=== PATIENT | female | born 1970 | race African-American/Black ===

== ENCOUNTER 2021-01-10 20:22 | Inpatient (IN) | payer MEDICAID, SELFPAY ==
[~2021-01-10 20:22] MED LIST: Iopamidol 370 76% 100 ML VIAL ONE
[2021-01-10] MEDS ORDERED: Acetaminophen 500 MG TAB ONE (20:31)
[2021-01-10 20:58] LABS: Hemoglobin 11.2 g/dL (12.0-16.0); Mean Corpuscular HGB CONC 30.4 g/dL (32.0-36.0); Mean Corpuscular Hemoglobin 22.7 pg (27.0-31.0); Mean Corpuscular Volume 74.6 fL (78.0-98.0); Mean Platelet Volume 9.1 fL (7.4-10.4); Platelet Count 474 thou/uL (130-400); RBC Distribution Width 18.9 % (11.5-14.5); Red Blood Cell (RBC) Count 4.93 mill/uL (4.20-5.40); White Blood Cell (WBC) Count 17.4 thou/uL (4.8-10.8)
[2021-01-10 21:15] LABS: #Basophils 0.1 thou/uL (0.0-0.2); #Eosinphils 0.2 thou/uL (0.0-0.7); #Lymphocytes 5.5 thou/uL (1.20-3.40); #Monocytes 1.3 thou/uL (0.11-0.59); #Neutrophils 10.4 thou/uL (1.40-6.50); %Basophils 0.5 % (0.0-1.0); %Eosinophils 1.1 % (0.0-10.0); %Lymphocytes 31.4 % (21.0-51.0); %Monocytes 7.2 % (0.0-10.0); %Neutrophils 59.8 % (42.0-75.0); MDiff Complete? YES; Microcytosis SLIGHT = 6-15 cells (100X) (0-5/hpf); Platelet Morphology Comment Appears Increased
[2021-01-10] MEDS ORDERED: Morphine 4 MG/ML VIAL ONE (21:31)
[2021-01-10] MEDS ORDERED: Piperacillin/Tazobactam 3.375 GM VIAL ONE (21:58)
[2021-01-10 21:59] LABS: ALT (SGPT) 11 U/L (8-55); AST (SGOT) 13 U/L (5-34); Alkaline Phosphatase 113 U/L (40-110); Anion Gap 16 mmol/L (10-20); BUN (Urea Nitrogen) 12 mg/dL (9.8-20.1); Bilirubin, Total 0.7 mg/dL (0.2-1.2); Calc. Creatinine Clearance 0 mL/min (70-130); Calcium 9.6 mg/dL (7.8-10.44); Carbon Dioxide 24 mmol/L (22-29); Chloride 108 mmol/L (98-107); Globulin 4.2 g/dL (2.4-3.5); Glucose 95 mg/dL (70-105); Potassium 3.9 mmol/L (3.5-5.1); Protein, Total 8.2 g/dL (6.0-8.3); Sodium 144 mmol/L (136-145)
[2021-01-10] MEDS ORDERED: Piperacillin/Tazobactam 3.375 GM in Sodium Chloride 0.9% 100 ML IVPB SCH (22:00)
[2021-01-10 22:01] LABS: BHCG - Serum Negative (NEGATIVE); Pregs Control Background? CLEAR/WHITE (CLR/WHITE); Pregs Control Bar Appear? YES (CONTROL BAR)
[2021-01-11] MEDS ORDERED: Acetaminophen 650 MG Suppository PR PRN (01:51)
[2021-01-11] MEDS ORDERED: Acetaminophen 325 MG TAB PO PRN (01:51)
[2021-01-11 01:53] LABS: Bilirubin Negative (Negative); Blood, Urine Negative (Negative); Clarity Clear (Clear); Glucose, Urine (Dipstick) Normal (Negative); Ketone, Urine Negative (Negative); Leukocyte Negative Leu/uL (Negative); Nitrite Negative (Negative); Protein, Urine (Dipstick) Negative (Neg-Trace); Specific Gravity, Urine 1.025 (1.002-1.036); Urobilinogen Normal mg/dL (Less than 2); pH, Urine 5.5 (5.0-9.0)
[2021-01-11] MEDS ORDERED: hydrALAZINE 20 MG/ML VIAL SLOW IVP PRN (01:53)
[2021-01-11] MEDS ORDERED: Amlodipine 10 MG TAB PO SCH ×2 (02:15→09:00)
[2021-01-11 02:52] VITALS: BMI 32.6
[2021-01-11] MEDS: Piperacillin/Tazobactam 3.375 GM in Sodium Chloride 0.9% 100 ML IVPB SCH ×2 (04:49→12:32)
[2021-01-11 06:47] LABS: #Basophils 0.1 thou/uL (0.0-0.2); #Eosinphils 0.2 thou/uL (0.0-0.7); #Lymphocytes 4.2 thou/uL (1.20-3.40); #Monocytes 1.2 thou/uL (0.11-0.59); #Neutrophils 7.3 thou/uL (1.40-6.50); %Basophils 0.5 % (0.0-1.0); %Eosinophils 1.4 % (0.0-10.0); %Lymphocytes 32.4 % (21.0-51.0); %Neutrophils 56.7 % (42.0-75.0); Hemoglobin 10.4 g/dL (12.0-16.0); Mean Corpuscular HGB CONC 31.5 g/dL (32.0-36.0); Mean Corpuscular Hemoglobin 23.7 pg (27.0-31.0); Mean Corpuscular Volume 75.2 fL (78.0-98.0); Mean Platelet Volume 9.1 fL (7.4-10.4); Platelet Count 421 thou/uL (130-400); RBC Distribution Width 18.4 % (11.5-14.5); Red Blood Cell (RBC) Count 4.41 mill/uL (4.20-5.40); White Blood Cell (WBC) Count 12.8 thou/uL (4.8-10.8)
[2021-01-11 07:24] LABS: Iron 21 ug/dL (50-170); Iron Binding Capacity, Total 373 mcg/dL (265-497)
[2021-01-11 07:33] LABS: Anion Gap 13 mmol/L (10-20); BUN (Urea Nitrogen) 8 mg/dL (9.8-20.1); Calc. Creatinine Clearance 109 mL/min (70-130); Calcium 8.5 mg/dL (7.8-10.44); Carbon Dioxide 22 mmol/L (22-29); Chloride 112 mmol/L (98-107); Glucose 94 mg/dL (70-105); Potassium 3.7 mmol/L (3.5-5.1); Sodium 143 mmol/L (136-145)
[2021-01-11 08:28] VITALS: BP 152/91; TEMP 98
[2021-01-11 14:52] LABS: SARS-CoV-2 PCR by NAA Not Detected (NotDetected)
== END 2021-01-11 13:47 | disposition home or self-care (01) | DRG 872 ==
LOC: ERS 20:22 → T4-A 01-11 00:06
PROVIDERS: ADMIT Student in an Organized Health Care Education/Training Program; ATTEND Student in an Organized Health Care Education/Training Program
DX: A41.9 Sepsis, unspecified organism (principal); K57.32 Diverticulitis of large intestine without perforation or abscess without bleeding; Z20.822 Contact with and (suspected) exposure to COVID-19; I16.0 Hypertensive urgency; D25.9 Leiomyoma of uterus, unspecified; K80.80 Other cholelithiasis without obstruction; I10 Essential (primary) hypertension; D50.9 Iron deficiency anemia, unspecified; Z88.1 Allergy status to other antibiotic agents; Z88.8 Allergy status to other drugs, medicaments and biological substances
CPT/HCPCS: 36415; 74177; 80048; 80053; 81003; 82728; 83540; 83550; 83605; 84703; 85025; 87040; 87086; J2270; J2543; J3490; Q9967; U0003; U0005

== ENCOUNTER 2021-04-12 21:39 | Emergency (ER) | payer SELFPAY ==
[2021-04-13] MEDS ORDERED: Acetaminophen 500 MG TAB ONE ×2 (00:17→00:33)
[2021-04-13 01:35] LABS: #Basophils 0.1 thou/uL (0.0-0.2); #Eosinphils 0.1 thou/uL (0.0-0.7); #Lymphocytes 3.7 thou/uL (1.20-3.40); #Monocytes 1.4 thou/uL (0.11-0.59); #Neutrophils 7.4 thou/uL (1.40-6.50); %Basophils 0.4 % (0.0-1.0); %Lymphocytes 29.3 % (21.0-51.0); %Monocytes 11.1 % (0.0-10.0); %Neutrophils 58.2 % (42.0-75.0); Hemoglobin 9.9 g/dL (12.0-16.0); Mean Corpuscular HGB CONC 31.1 g/dL (32.0-36.0); Mean Corpuscular Hemoglobin 24.4 pg (27.0-31.0); Mean Corpuscular Volume 78.5 fL (78.0-98.0); Mean Platelet Volume 8.3 fL (7.4-10.4); Platelet Count 357 thou/uL (130-400); RBC Distribution Width 16.6 % (11.5-14.5); Red Blood Cell (RBC) Count 4.04 mill/uL (4.20-5.40); White Blood Cell (WBC) Count 12.7 thou/uL (4.8-10.8)
[2021-04-13 01:59] LABS: ALT (SGPT) 10 U/L (8-55); AST (SGOT) 11 U/L (5-34); Albumin 3.1 g/dL (3.5-5.0); Alkaline Phosphatase 78 U/L (40-110); Anion Gap 12 mmol/L (10-20); BUN (Urea Nitrogen) 11 mg/dL (9.8-20.1); Bilirubin, Total 0.7 mg/dL (0.2-1.2); Calc. Creatinine Clearance 0 mL/min (70-130); Calcium 8.4 mg/dL (7.8-10.44); Carbon Dioxide 22 mmol/L (22-29); Chloride 113 mmol/L (98-107); Globulin 3.2 g/dL (2.4-3.5); Glucose 96 mg/dL (70-105); Lipase 35 U/L (8-78); Potassium 3.7 mmol/L (3.5-5.1); Protein, Total 6.3 g/dL (6.0-8.3); Sodium 143 mmol/L (136-145)
[2021-04-13 04:08] LABS: Bacteria/HPF None Seen HPF (None Seen); Bilirubin Negative (Negative); Blood, Urine 1+ (Negative); Clarity Turbid (Clear); Glucose, Urine (Dipstick) Normal (Negative); Ketone, Urine Trace mg/dL (Negative); Leukocyte 250 Leu/uL (Negative); Nitrite Negative (Negative); Protein, Urine (Dipstick) 50 mg/dL (Neg-Trace); Specific Gravity, Urine 1.029 (1.002-1.036); Squamous Epithelial Greater than 50 HPF (0-3); Urobilinogen Normal mg/dL (Less than 2); WBC/HPF 21-50 HPF (0-3); pH, Urine 5.5 (5.0-9.0)
[2021-04-13 17:44] LABS: SARS-CoV-2 PCR by NAA Not Detected (NotDetected)
== END 2021-04-13 04:37 | disposition home or self-care (01) ==
LOC: ERS 21:39
DX: R53.83 Other fatigue (principal); R68.83 Chills (without fever); R10.9 Unspecified abdominal pain; R05.9 Cough, unspecified; R51.9 Headache, unspecified; Z20.822 Contact with and (suspected) exposure to COVID-19
CPT/HCPCS: 36415; 80053; 81003; 81015; 83690; 85025; 99284; U0003; U0005

== ENCOUNTER 2021-07-26 20:29 | Inpatient (IN) | payer SELFPAY ==
[~2021-07-26 20:29] MED LIST changes: -Iopamidol 370 76% 100 ML VIAL ONE; +Iopamidol-370 76% 500 ML 1 ML ONE
[2021-07-26 21:13] LABS: #Basophils 0.1 thou/uL (0.0-0.2); #Eosinphils 0.2 thou/uL (0.0-0.7); #Lymphocytes 4.7 thou/uL (1.20-3.40); #Monocytes 1.5 thou/uL (0.11-0.59); #Neutrophils 8.7 thou/uL (1.40-6.50); %Basophils 0.7 % (0.0-1.0); %Lymphocytes 30.8 % (21.0-51.0); %Neutrophils 57.5 % (42.0-75.0); Hemoglobin 11.7 g/dL (12.0-16.0); Mean Corpuscular HGB CONC 32.5 g/dL (32.0-36.0); Mean Corpuscular Hemoglobin 25.5 pg (27.0-31.0); Mean Corpuscular Volume 78.3 fL (78.0-98.0); Mean Platelet Volume 7.9 fL (7.4-10.4); Platelet Count 484 thou/uL (130-400); RBC Distribution Width 15.7 % (11.5-14.5); Red Blood Cell (RBC) Count 4.59 mill/uL (4.20-5.40); White Blood Cell (WBC) Count 15.1 thou/uL (4.8-10.8)
[2021-07-26 21:30] LABS: ALT (SGPT) 13 U/L (8-55); AST (SGOT) 15 U/L (5-34); Albumin 3.8 g/dL (3.5-5.0); Alkaline Phosphatase 93 U/L (40-110); Anion Gap 13 mmol/L (10-20); BUN (Urea Nitrogen) 10 mg/dL (9.8-20.1); Bilirubin, Total 0.4 mg/dL (0.2-1.2); Calc. Creatinine Clearance 0 mL/min (70-130); Calcium 9.3 mg/dL (7.8-10.44); Carbon Dioxide 23 mmol/L (22-29); Chloride 109 mmol/L (98-107); Globulin 4.2 g/dL (2.4-3.5); Glucose 110 mg/dL (70-105); Potassium 3.7 mmol/L (3.5-5.1); Sodium 141 mmol/L (136-145)
[2021-07-26] MEDS ORDERED: Ketorolac Tromethamine 30 MG/ML VIAL ONE (22:18)
[2021-07-26 22:31] LABS: SARS-CoV-2 NAA Rapid Test Not Detected (NotDetected)
[2021-07-26] MEDS ORDERED: Piperacillin/Tazobactam 4.5 GM VIAL ONE (23:00)
[2021-07-26 23:36] LABS: Bilirubin Negative (Negative); Blood, Urine Negative (Negative); Clarity Clear (Clear); Glucose, Urine (Dipstick) Normal (Negative); Ketone, Urine Negative (Negative); Leukocyte Negative Leu/uL (Negative); Nitrite Negative (Negative); Protein, Urine (Dipstick) Negative (Neg-Trace); Specific Gravity, Urine 1.014 (1.002-1.036); Urobilinogen Normal mg/dL (Less than 2)
[2021-07-27 01:29] LABS: Troponin I 0.024 ng/mL (< 0.028)
[2021-07-27] MEDS ORDERED: Acetaminophen 325 MG TAB PO PRN ×2 (01:45→14:49)
[2021-07-27] MEDS ORDERED: Ondansetron PF 4 MG/2 ML Vial IVP PRN (01:45)
[2021-07-27] MEDS ORDERED: Sodium Chloride 0.9% 1,000 ML IV SCH (01:45)
[2021-07-27] MEDS ORDERED: Ondansetron ODT 4 MG TAB SL PRN (01:45)
[2021-07-27] MEDS ORDERED: hydrALAZINE 20 MG/ML VIAL SLOW IVP PRN (02:29)
[2021-07-27] MEDS ORDERED: Piperacillin/Tazobactam 3.375 GM in Sodium Chloride 0.9% 100 ML IVPB SCH (03:00)
[2021-07-27] MEDS: cefTRIAXone\\ROCEPHIN 1 GM in Sodium Chloride 0.9% 100 ML IVPB SCH (06:07)
[2021-07-27 06:19] LABS: Troponin I 0.017 ng/mL (< 0.028)
[2021-07-27 06:39] VITALS: BMI 31.0
[2021-07-27] MEDS ORDERED: metroNIDAZOLE 500 MG TAB PO SCH (07:00)
[2021-07-27] MEDS ORDERED: Amlodipine 10 MG TAB PO SCH (09:15)
[2021-07-27] MEDS ORDERED: Losartan 25 MG TAB PO SCH (09:15)
[2021-07-27] MEDS: Enoxaparin Sodium 40 MG/0.4 ML SYRINGE SC SCH (10:10)
[2021-07-27] MEDS: metroNIDAZOLE 500 MG TAB PO SCH ×2 (15:23→20:41)
[2021-07-27] MEDS: Sodium Chloride 0.9% 1,000 ML IV SCH ×2 (15:24→20:41)
[2021-07-28] MEDS: Sodium Chloride 0.9% 1,000 ML IV SCH ×2 (06:00→22:43)
[2021-07-28] MEDS: cefTRIAXone\\ROCEPHIN 1 GM in Sodium Chloride 0.9% 100 ML IVPB SCH (06:00)
[2021-07-28 06:01] LABS: #Eosinphils 0.2 thou/uL (0.0-0.7); #Lymphocytes 3.3 thou/uL (1.20-3.40); %Basophils 0.4 % (0.0-1.0); %Eosinophils 2.7 % (0.0-10.0); %Monocytes 12.1 % (0.0-10.0); %Neutrophils 46.9 % (42.0-75.0); Hemoglobin 10.5 g/dL (12.0-16.0); Mean Corpuscular HGB CONC 31.3 g/dL (32.0-36.0); Mean Corpuscular Hemoglobin 24.6 pg (27.0-31.0); Mean Corpuscular Volume 78.8 fL (78.0-98.0); Mean Platelet Volume 7.6 fL (7.4-10.4); Platelet Count 480 thou/uL (130-400); RBC Distribution Width 15.7 % (11.5-14.5); Red Blood Cell (RBC) Count 4.26 mill/uL (4.20-5.40); White Blood Cell (WBC) Count 8.6 thou/uL (4.8-10.8)
[2021-07-28 06:27] LABS: Anion Gap 14 mmol/L (10-20); BUN (Urea Nitrogen) 6 mg/dL (9.8-20.1); Calc. Creatinine Clearance 136 mL/min (70-130); Carbon Dioxide 19 mmol/L (22-29); Chloride 112 mmol/L (98-107); Glucose 89 mg/dL (70-105); Potassium 3.8 mmol/L (3.5-5.1); Sodium 141 mmol/L (136-145)
[2021-07-28] MEDS: metroNIDAZOLE 500 MG TAB PO SCH ×3 (08:52→20:55)
[2021-07-28] MEDS: Losartan 25 MG TAB PO SCH (08:52)
[2021-07-28] MEDS: Amlodipine 10 MG TAB PO SCH (08:52)
[2021-07-28] MEDS: Enoxaparin Sodium 40 MG/0.4 ML SYRINGE SC SCH (08:53)
[2021-07-28] MEDS ORDERED: Fioricet 325/50/40 mg Tablet PO PRN (15:23)
[2021-07-28] MEDS ORDERED: HYDROcodone/Acetaminophen 5/325 mg Tablet PO PRN (15:33)
[2021-07-28] MEDS ORDERED: Morphine 2 MG/ML VIAL SLOW IVP PRN (15:33)
[2021-07-28] MEDS: Metoprolol Tartrate 25 MG TAB PO SCH (20:55)
[2021-07-29] MEDS: Sodium Chloride 0.9% 1,000 ML IV SCH ×2 (04:19→14:26)
[2021-07-29 05:42] LABS: #Eosinphils 0.2 thou/uL (0.0-0.7); #Lymphocytes 3.5 thou/uL (1.20-3.40); #Monocytes 1.2 thou/uL (0.11-0.59); #Neutrophils 4.8 thou/uL (1.40-6.50); %Basophils 0.1 % (0.0-1.0); %Eosinophils 2.4 % (0.0-10.0); %Lymphocytes 35.6 % (21.0-51.0); %Monocytes 12.7 % (0.0-10.0); %Neutrophils 49.2 % (42.0-75.0); Hemoglobin 10.7 g/dL (12.0-16.0); Mean Corpuscular HGB CONC 31.6 g/dL (32.0-36.0); Mean Corpuscular Volume 79.1 fL (78.0-98.0); Mean Platelet Volume 7.4 fL (7.4-10.4); Platelet Count 468 thou/uL (130-400); RBC Distribution Width 15.8 % (11.5-14.5); Red Blood Cell (RBC) Count 4.27 mill/uL (4.20-5.40); White Blood Cell (WBC) Count 9.7 thou/uL (4.8-10.8)
[2021-07-29 06:06] LABS: Anion Gap 13 mmol/L (10-20); BUN (Urea Nitrogen) 9 mg/dL (9.8-20.1); Calc. Creatinine Clearance 128 mL/min (70-130); Calcium 8.7 mg/dL (7.8-10.44); Carbon Dioxide 18 mmol/L (22-29); Chloride 115 mmol/L (98-107); Glucose 90 mg/dL (70-105); Iron 13 ug/dL (50-170); Iron Binding Capacity, Total 358 mcg/dL (265-497); Sodium 142 mmol/L (136-145)
[2021-07-29] MEDS: cefTRIAXone\\ROCEPHIN 1 GM in Sodium Chloride 0.9% 100 ML IVPB SCH (06:30)
[2021-07-29] MEDS: Metoprolol Tartrate 25 MG TAB PO SCH (08:19)
[2021-07-29] MEDS: Enoxaparin Sodium 40 MG/0.4 ML SYRINGE SC SCH (08:19)
[2021-07-29] MEDS: metroNIDAZOLE 500 MG TAB PO SCH ×2 (08:19→15:28)
[2021-07-29] MEDS: Amlodipine 10 MG TAB PO SCH (08:19)
[2021-07-29] MEDS: Losartan 25 MG TAB PO SCH (08:19)
[2021-07-29 12:18] VITALS: BP 138/80
[2021-07-29 16:13] VITALS: TEMP 98
== END 2021-07-29 17:50 | disposition home or self-care (01) | DRG 872 ==
LOC: ERS 20:29 → SURG B 07-27 00:02 → OBSVTOIN 07-27 10:36
PROVIDERS: ADMIT Hospitalist; ATTEND Hospitalist
DX: A41.9 Sepsis, unspecified organism (principal); K57.32 Diverticulitis of large intestine without perforation or abscess without bleeding; I10 Essential (primary) hypertension; D64.9 Anemia, unspecified; D21.9 Benign neoplasm of connective and other soft tissue, unspecified; D50.0 Iron deficiency anemia secondary to blood loss (chronic); Z88.0 Allergy status to penicillin; Z79.899 Other long term (current) drug therapy
CPT/HCPCS: 36415; 71045; 71275; 74177; 80048; 80053; 81003; 82728; 83540; 83550; 83605; 83880; 84484; 85025; 87040; 87086; 93005; 93306; 96365; 96375; J0696; J1650; J1885; J2543; J3490; J7050; Q9967

== ENCOUNTER 2022-02-03 16:55 | Emergency (ER) | payer SELFPAY ==
[2022-02-03 17:33] LABS: #Eosinphils 0.1 thou/uL (0.0-0.7); #Lymphocytes 3.3 thou/uL (1.20-3.40); #Monocytes 0.9 thou/uL (0.11-0.59); #Neutrophils 6.3 thou/uL (1.40-6.50); %Basophils 0.3 % (0.0-1.0); %Eosinophils 0.8 % (0.0-10.0); %Lymphocytes 30.7 % (21.0-51.0); %Monocytes 8.7 % (0.0-10.0); %Neutrophils 59.4 % (42.0-75.0); Hemoglobin 12.3 g/dL (12.0-16.0); Mean Corpuscular HGB CONC 31.5 g/dL (32.0-36.0); Mean Corpuscular Hemoglobin 26.2 pg (27.0-31.0); Mean Platelet Volume 7.8 fL (7.4-10.4); Platelet Count 422 thou/uL (130-400); RBC Distribution Width 14.9 % (11.5-14.5); White Blood Cell (WBC) Count 10.6 thou/uL (4.8-10.8)
[2022-02-03 17:54] LABS: ALT (SGPT) 32 U/L (8-55); AST (SGOT) 48 U/L (5-34); Albumin 3.7 g/dL (3.5-5.0); Alkaline Phosphatase 143 U/L (40-110); Anion Gap 9 mmol/L (10-20); BUN (Urea Nitrogen) 8 mg/dL (9.8-20.1); Bilirubin, Total 0.7 mg/dL (0.2-1.2); Calc. Creatinine Clearance 0 mL/min (70-130); Calcium 9.6 mg/dL (7.8-10.44); Carbon Dioxide 28 mmol/L (22-29); Chloride 109 mmol/L (98-107); Estimated GFR 104; Globulin 3.4 g/dL (2.4-3.5); Glucose 112 mg/dL (70-105); Protein, Total 7.1 g/dL (6.0-8.3); Sodium 142 mmol/L (136-145)
[2022-02-03] MEDS ORDERED: Mag-Al 1200 mg/1200 mg/30 ML UDCUP ONE (20:27)
[2022-02-03] MEDS ORDERED: Lidocaine Viscous Sol 2% 15 ml UD Cup ONE (20:27)
== END 2022-02-03 23:36 | disposition home or self-care (01) ==
LOC: ERS 16:55
DX: K80.20 Calculus of gallbladder without cholecystitis without obstruction (principal); I10 Essential (primary) hypertension; Z79.899 Other long term (current) drug therapy
CPT/HCPCS: 36415; 71045; 74177; 80053; 83690; 84484; 85025; 93005; 94760; Q9967

== ENCOUNTER 2022-04-28 05:22 | Observation (INO) | payer SELFPAY ==
[2022-04-28] MEDS ORDERED: Amlodipine 5 MG TAB ONE (05:52)
[2022-04-28] MEDS ORDERED: Metoprolol Tartrate 25 MG TAB ONE (05:52)
[2022-04-28] MEDS ORDERED: Aspirin Chewable 81 MG TAB ONE (05:52)
[2022-04-28 06:05] LABS: #Basophils 0.1 thou/uL (0.0-0.2); #Eosinphils 0.1 thou/uL (0.0-0.7); #Lymphocytes 4.2 thou/uL (1.20-3.40); %Basophils 0.6 % (0.0-1.0); %Eosinophils 1.1 % (0.0-10.0); %Lymphocytes 44.9 % (21.0-51.0); %Monocytes 10.9 % (0.0-10.0); %Neutrophils 42.5 % (42.0-75.0); Hemoglobin 12.9 g/dL (12.0-16.0); Mean Corpuscular HGB CONC 32.1 g/dL (32.0-36.0); Mean Corpuscular Hemoglobin 25.9 pg (27.0-31.0); Mean Corpuscular Volume 80.6 fl (78.0-98.0); Mean Platelet Volume 8.2 fL (7.4-10.4); Platelet Count 433 10x3/uL (130-400); RBC Distribution Width 14.2 % (11.5-14.5); White Blood Cell (WBC) Count 9.4 10x3/uL (4.8-10.8)
[2022-04-28 06:25] LABS: ALT (SGPT) 18 U/L (8-55); AST (SGOT) 21 U/L (5-34); Albumin 3.9 g/dL (3.5-5.0); Alkaline Phosphatase 126 U/L (40-110); Anion Gap 15 mmol/L (10-20); BUN (Urea Nitrogen) 12 mg/dL (9.8-20.1); Bilirubin, Total 0.4 mg/dL (0.2-1.2); Calc. Creatinine Clearance 0 mL/min (70-130); Calcium 9.7 mg/dL (7.8-10.44); Carbon Dioxide 23 mmol/L (22-29); Chloride 109 mmol/L (98-107); Estimated GFR 99; Globulin 4.7 g/dL (2.4-3.5); Glucose 102 mg/dL (70-105); Lipase 56 U/L (8-78); Potassium 4.1 mmol/L (3.5-5.1); Protein, Total 8.6 g/dL (6.0-8.3); Sodium 143 mmol/L (136-145)
[2022-04-28] MEDS ORDERED: Ondansetron PF 4 MG/2 ML Vial IVP PRN (07:24)
[2022-04-28] MEDS ORDERED: Acetaminophen 325 MG TAB PO PRN (07:24)
[2022-04-28] MEDS ORDERED: Ondansetron ODT 4 MG TAB PO PRN (07:24)
[2022-04-28 08:15] LABS: Magnesium 1.8 mg/dL (1.6-2.6)
[2022-04-28 10:27] VITALS: BMI 29.7
[2022-04-28 12:30] LABS: Troponin I Less than 0.010 ng/mL (< 0.028)
[2022-04-28] MEDS ORDERED: FLU VACC QS2022-23(6MOS UP)/PF 60 MCG/0.5 ML SYRINGE IM ONE (14:00)
[2022-04-28 16:49] LABS: Troponin I Less than 0.010 ng/mL (< 0.028)
[2022-04-29 04:50] LABS: #Basophils 0.1 thou/uL (0.0-0.2); #Eosinphils 0.1 thou/uL (0.0-0.7); #Lymphocytes 4.2 thou/uL (1.20-3.40); #Monocytes 0.9 thou/uL (0.11-0.59); #Neutrophils 3.5 thou/uL (1.40-6.50); %Basophils 0.9 % (0.0-1.0); %Eosinophils 1.4 % (0.0-10.0); %Lymphocytes 47.5 % (21.0-51.0); %Monocytes 10.7 % (0.0-10.0); %Neutrophils 39.6 % (42.0-75.0); Hemoglobin 11.6 g/dL (12.0-16.0); Mean Corpuscular HGB CONC 31.3 g/dL (32.0-36.0); Mean Corpuscular Hemoglobin 25.4 pg (27.0-31.0); Mean Platelet Volume 8.1 fL (7.4-10.4); Platelet Count 398 10x3/uL (130-400); RBC Distribution Width 14.2 % (11.5-14.5); Red Blood Cell (RBC) Count 4.59 mill/uL (4.20-5.40); White Blood Cell (WBC) Count 8.8 10x3/uL (4.8-10.8)
[2022-04-29 05:08] LABS: Anion Gap 14 mmol/L (10-20); BUN (Urea Nitrogen) 12 mg/dL (9.8-20.1); Calc. Creatinine Clearance 119 mL/min (70-130); Calcium 9.3 mg/dL (7.8-10.44); Carbon Dioxide 20 mmol/L (22-29); Chloride 113 mmol/L (98-107); Estimated GFR 103; Glucose 93 mg/dL (70-105); Potassium 3.8 mmol/L (3.5-5.1); Sodium 143 mmol/L (136-145)
[2022-04-29] MEDS ORDERED: Aspirin Chewable 81 MG TAB PO SCH (09:00)
[2022-04-29 12:34] VITALS: BP 171/81; TEMP 98.1
[2022-04-29] MEDS ORDERED: Amlodipine 10 MG TAB PO SCH (14:00)
[2022-04-29] MEDS ORDERED: Metoprolol Tartrate 25 MG TAB PO SCH ×2 (14:00→21:00)
[2022-04-29] MEDS ORDERED: Losartan 25 MG TAB PO SCH ×2 (14:00→21:00)
[2022-04-30] MEDS ORDERED: Amlodipine 10 MG TAB PO SCH (09:00)
== END 2022-04-29 15:30 | disposition home or self-care (01) ==
LOC: ERS 05:22 → SUATTDRO 05:22 → 2NO 06:57
PROVIDERS: ADMIT Internal Medicine; ATTEND Internal Medicine
DX: R07.2 Precordial pain (principal); I10 Essential (primary) hypertension; R73.03 Prediabetes; I08.3 Combined rheumatic disorders of mitral, aortic and tricuspid valves; Z79.899 Other long term (current) drug therapy; Z88.0 Allergy status to penicillin; Z20.822 Contact with and (suspected) exposure to COVID-19
CPT/HCPCS: 36415; 71045; 78452; 80048; 80053; 83690; 83735; 84443; 84484; 85025; 85379; 93005; 93017; 93306; 94760; A9500; G0378; U0003; U0005

== ENCOUNTER 2022-12-04 21:28 | Emergency (ER) | payer SELFPAY ==
[2022-12-04 22:04] LABS: #Eosinphils 0.2 thou/uL (0.0-0.7); #Monocytes 1.3 thou/uL (0.11-0.59); #Neutrophils 5.3 thou/uL (1.40-6.50); %Basophils 0.2 % (0.0-1.0); %Eosinophils 1.3 % (0.0-10.0); %Lymphocytes 47.9 % (21.0-51.0); Hematocrit 44.3 % (36.0-47.0); Hemoglobin 14.4 g/dL (12.0-16.0); Mean Corpuscular HGB CONC 32.5 g/dL (32.0-36.0); Mean Corpuscular Hemoglobin 27.2 pg (27.0-31.0); Mean Corpuscular Volume 83.7 fl (78.0-98.0); Mean Platelet Volume 9.8 fL (7.4-10.4); Platelet Count 414 10x3/uL (130-400); Red Blood Cell (RBC) Count 5.29 mill/uL (4.20-5.40); White Blood Cell (WBC) Count 13.2 10x3/uL (4.8-10.8)
[2022-12-04 22:29] LABS: ALT (SGPT) 26 U/L (8-55); AST (SGOT) 45 U/L (5-34); Albumin 3.9 g/dL (3.5-5.0); Alkaline Phosphatase 107 U/L (40-110); Anion Gap 13 mmol/L (10-20); BUN (Urea Nitrogen) 12 mg/dL (9.8-20.1); Bilirubin, Total 0.5 mg/dL (0.2-1.2); Calc. Creatinine Clearance 0 mL/min (70-130); Calcium 9.4 mg/dL (7.8-10.44); Carbon Dioxide 22 mmol/L (22-29); Chloride 109 mmol/L (98-107); Estimated GFR 79; Globulin 4.4 g/dL (2.4-3.5); Glucose 94 mg/dL (70-105); Lipase 39 U/L (8-78); Potassium 3.9 mmol/L (3.5-5.1); Protein, Total 8.3 g/dL (6.0-8.3); Sodium 140 mmol/L (136-145)
[2022-12-04] MEDS ORDERED: Morphine 4 MG/ML VIAL ONE (22:35)
[2022-12-04] MEDS ORDERED: Ondansetron PF 4 MG/2 ML Vial ONE (22:35)
[2022-12-04 22:37] LABS: Troponin I Less than 0.010 ng/mL (< 0.028)
[2022-12-04 22:50] LABS: Magnesium 1.6 mg/dL (1.6-2.6)
[2022-12-04 22:53] LABS: Bacteria/HPF None Seen HPF (None Seen); Bilirubin Negative (Negative); Blood, Urine Negative (Negative); CAUTI Indications for Culture Acute Hematuria; Clarity Clear (Clear); Glucose, Urine (Dipstick) Normal (Negative); Ketone, Urine Negative (Negative); Leukocyte Negative Leu/uL (Negative); Nitrite Negative (Negative); Protein, Urine (Dipstick) 10 mg/dL (Neg-Trace); RBC/HPF 0-3 HPF (0-3); Squamous Epithelial 0-3 HPF (0-3); Urobilinogen Normal mg/dL (Less than 2); WBC/HPF 0-3 HPF (0-3)
[2022-12-04 22:56] LABS: Urine Culture Reflex No No
== END 2022-12-04 23:48 | disposition home or self-care (01) ==
LOC: ERS 21:28
DX: K80.20 Calculus of gallbladder without cholecystitis without obstruction (principal); I10 Essential (primary) hypertension; Z79.899 Other long term (current) drug therapy
CPT/HCPCS: 71045; 76705; 80053; 81001; 83690; 83735; 84484; 85025; 93005; 96361; 96374; 96375; J2270; J2405

== ENCOUNTER 2023-03-10 11:28 | Emergency (ER) | payer OTHER ==
[2023-03-10] MEDS ORDERED: fentaNYL 50 mcg/mL 1 mL Vial ONE ×2 (12:11→14:06)
[2023-03-10 12:14] LABS: #Eosinphils 0.2 thou/uL (0.0-0.7); #Monocytes 0.8 thou/uL (0.11-0.59); #Neutrophils 4.8 thou/uL (1.40-6.50); %Basophils 0.4 % (0.0-1.0); %Eosinophils 1.7 % (0.0-10.0); %Lymphocytes 36.3 % (21.0-51.0); %Monocytes 8.8 % (0.0-10.0); %Neutrophils 52.4 % (42.0-75.0); Hematocrit 43.3 % (36.0-47.0); Hemoglobin 14.1 g/dL (12.0-16.0); Mean Corpuscular HGB CONC 32.6 g/dL (32.0-36.0); Mean Corpuscular Volume 86.1 fl (78.0-98.0); Mean Platelet Volume 10.1 fL (7.4-10.4); Platelet Count 403 10x3/uL (130-400); RBC Distribution Width 14.7 % (11.5-14.5); Red Blood Cell (RBC) Count 5.03 mill/uL (4.20-5.40); White Blood Cell (WBC) Count 9.2 10x3/uL (4.8-10.8)
[2023-03-10 12:25] LABS: BHCG - Serum Negative (NEGATIVE); Pregs Control Background? CLEAR/WHITE (CLR/WHITE); Pregs Control Bar Appear? YES (CONTROL BAR)
[2023-03-10 12:37] LABS: ALT (SGPT) 12 U/L (8-55); AST (SGOT) 17 U/L (5-34); Alkaline Phosphatase 102 U/L (40-110); Anion Gap 13 mmol/L (10-20); BUN (Urea Nitrogen) 11 mg/dL (9.8-20.1); Bilirubin, Total 0.8 mg/dL (0.2-1.2); Calc. Creatinine Clearance 0 mL/min (70-130); Calcium 9.4 mg/dL (7.8-10.44); Carbon Dioxide 22 mmol/L (22-29); Chloride 111 mmol/L (98-107); Estimated GFR 82; Globulin 4.1 g/dL (2.4-3.5); Glucose 96 mg/dL (70-105); Potassium 3.7 mmol/L (3.5-5.1); Protein, Total 8.1 g/dL (6.0-8.3); Sodium 142 mmol/L (136-145)
[2023-03-10] MEDS ORDERED: Lidocaine 1% PF 5 ML VIAL ONE (13:14)
[2023-03-10] MEDS ORDERED: Iopamidol-370 76% 500 ML MDV (1 ML CHARGE) ONE (14:30)
== END 2023-03-10 15:04 | disposition home or self-care (01) ==
LOC: ERS 11:28
DX: S62.324A Displaced fracture of shaft of fourth metacarpal bone, right hand, initial encounter for closed fracture (principal); I10 Essential (primary) hypertension; V89.2XXA Person injured in unspecified motor-vehicle accident, traffic, initial encounter; Y92.410 Unspecified street and highway as the place of occurrence of the external cause
CPT/HCPCS: 26605; 36415; 70450; 71045; 71260; 72125; 74177; 80053; 83605; 84703; 85025; 96374; 96376; J3010; Q9967

== ENCOUNTER 2023-03-13 07:37 | Emergency (ER) | payer OTHER ==
[2023-03-13] MEDS ORDERED: Ketorolac Tromethamine 30 MG/ML VIAL ONE (08:31)
== END 2023-03-13 08:56 | disposition home or self-care (01) ==
LOC: ERS 07:37
DX: S62.324A Displaced fracture of shaft of fourth metacarpal bone, right hand, initial encounter for closed fracture (principal); I10 Essential (primary) hypertension; V89.2XXA Person injured in unspecified motor-vehicle accident, traffic, initial encounter; Z79.899 Other long term (current) drug therapy
CPT/HCPCS: 29125; 96372; 99283; J1885

== ENCOUNTER 2023-06-11 02:41 | Observation (INO) | payer OTHER ==
[2023-06-11 03:43] LABS: #Eosinphils 0.1 thou/uL (0.0-0.7); #Monocytes 0.8 thou/uL (0.11-0.59); #Neutrophils 4.5 thou/uL (1.40-6.50); %Basophils 0.2 % (0.0-1.0); %Eosinophils 1.4 % (0.0-10.0); %Lymphocytes 41.6 % (21.0-51.0); %Monocytes 8.1 % (0.0-10.0); %Neutrophils 48.3 % (42.0-75.0); Hematocrit 45.5 % (36.0-47.0); Hemoglobin 14.7 g/dL (12.0-16.0); Mean Corpuscular HGB CONC 32.3 g/dL (32.0-36.0); Mean Corpuscular Hemoglobin 28.1 pg (27.0-31.0); Mean Corpuscular Volume 86.8 fl (78.0-98.0); Mean Platelet Volume 9.9 fL (7.4-10.4); Platelet Count 376 10x3/uL (130-400); RBC Distribution Width 15.1 % (11.5-14.5); Red Blood Cell (RBC) Count 5.24 mill/uL (4.20-5.40); White Blood Cell (WBC) Count 9.4 10x3/uL (4.8-10.8)
[2023-06-11 04:00] LABS: ALT (SGPT) 12 U/L (8-55); AST (SGOT) 15 U/L (5-34); Albumin 4.1 g/dL (3.5-5.0); Alkaline Phosphatase 99 U/L (40-110); Anion Gap 16 mmol/L (10-20); BUN (Urea Nitrogen) 12 mg/dL (9.8-20.1); Bilirubin, Total 0.6 mg/dL (0.2-1.2); Calc. Creatinine Clearance 0 mL/min (70-130); Carbon Dioxide 24 mmol/L (22-29); Chloride 106 mmol/L (98-107); Estimated GFR 61; Globulin 4.1 g/dL (2.4-3.5); Glucose 162 mg/dL (70-105); Lipase 26 U/L (8-78); Potassium 3.6 mmol/L (3.5-5.1); Protein, Total 8.2 g/dL (6.0-8.3); Sodium 142 mmol/L (136-145)
[2023-06-11] MEDS ORDERED: Ondansetron PF 4 MG/2 ML Vial ONE ×2 (04:02→09:57)
[2023-06-11] MEDS ORDERED: Morphine 4 MG/ML VIAL ONE (04:02)
[2023-06-11] MEDS ORDERED: Morphine 2 MG/ML VIAL ONE (04:04)
[2023-06-11] MEDS ORDERED: Morphine 2 MG/ML VIAL SLOW IVP PRN (05:17)
[2023-06-11] MEDS ORDERED: Ondansetron ODT 4 MG TAB SL PRN (05:30)
[2023-06-11] MEDS ORDERED: Ondansetron PF 4 MG/2 ML Vial IVP PRN (05:30)
[2023-06-11] MEDS ORDERED: Acetaminophen 325 MG TAB PO PRN (05:30)
[2023-06-11] MEDS ORDERED: Sodium Chloride 0.9% 1,000 ML IV SCH (05:30)
[2023-06-11 06:32] LABS: Bacteria/HPF None Seen HPF (None Seen); Bilirubin Negative (Negative); Blood, Urine Negative (Negative); Clarity Clear (Clear); Glucose, Urine (Dipstick) 30 mg/dL (Negative); Ketone, Urine Negative (Negative); Leukocyte Negative Leu/uL (Negative); Nitrite Negative (Negative); Protein, Urine (Dipstick) Negative (Neg-Trace); RBC/HPF 0-3 HPF (0-3); Specific Gravity, Urine 1.013 (1.002-1.036); Squamous Epithelial 0-3 HPF (0-3); Urobilinogen Normal mg/dL (Less than 2); pH, Urine 6.5 (5.0-9.0)
[2023-06-11] MEDS ORDERED: Morphine 4 MG/ML VIAL SLOW IVP PRN (07:12)
[2023-06-11] MEDS ORDERED: Ondansetron ODT 4 MG TAB PO PRN (07:12)
[2023-06-11] MEDS ORDERED: hydrALAZINE 20 MG/ML VIAL SLOW IVP PRN (07:12)
[2023-06-11] MEDS ORDERED: LevoFLOXacin 500 mg/D5W 500 MG in Premix 1 BAG IVPB SCH (07:15)
[2023-06-11 07:49] VITALS: BMI 34.6
[2023-06-11] MEDS: Ketorolac Tromethamine 30 MG (1 mL) VIAL IVP SCH (09:04)
[2023-06-11] MEDS: Lactated Ringer's 1,000 ML IV SCH (09:04)
[2023-06-11] MEDS: Famotidine 20 MG TAB PO SCH (09:09)
[2023-06-11] MEDS: Losartan 25 MG TAB PO SCH (09:09)
[2023-06-11] MEDS ORDERED: LevoFLOXacin D5W 500 mg (100 mL) BAG ONE (09:09)
[2023-06-11] MEDS: Amlodipine 10 MG TAB PO SCH (09:09)
[2023-06-11] MEDS: Metoprolol Tartrate 25 MG TAB PO SCH (09:10)
[2023-06-11] MEDS: Acetaminophen 500 MG TAB PO SCH (09:11)
[2023-06-11] MEDS ORDERED: EPINEPHrine 1 MG/ML VIAL ONE (09:12)
[2023-06-11] MEDS ORDERED: Bupivacaine 0.25% HCL 30 ML VIAL ONE (09:12)
[2023-06-11] MEDS ORDERED: PROPOFOL 20 ML ONE ×2 (09:19→10:28)
[2023-06-11] MEDS ORDERED: Lidocaine 2% PF 5 ML VIAL ONE (09:19)
[2023-06-11] MEDS ORDERED: SUGAMMADEX SODIUM 200 MG/2 ML VIAL ONE (09:23)
[2023-06-11] MEDS ORDERED: HYDROmorphone 0.5 MG/0.5 ML SYRINGE ONE (09:23)
[2023-06-11] MEDS ORDERED: Rocuronium Bromide 50 MG/5 ML VIAL ONE (09:23)
[2023-06-11] MEDS ORDERED: Midazolam HCl 2 mg/2 ml Vial ONE (09:38)
[2023-06-11] MEDS ORDERED: Ketorolac Tromethamine 30 MG (1 mL) VIAL ONE (09:57)
[2023-06-11] MEDS ORDERED: Dexamethasone 20 MG/5 ML VIAL ONE (09:57)
[2023-06-11] MEDS ORDERED: Phenylephrine 10 MG/ML VIAL ONE (09:58)
[2023-06-11] MEDS ORDERED: Ondansetron HCl/PF 4 MG/2 ML Vial IVP PRN (10:19)
[2023-06-11] MEDS ORDERED: Promethazine HCl 25 MG/ML VIAL IM PRN (10:19)
[2023-06-11] MEDS ORDERED: fentaNYL 50 mcg/mL 1 mL Vial ONE ×2 (10:25→11:03)
[2023-06-11] MEDS ORDERED: Albuterol HFA (OR) 200 PUFF INH ONE ×2 (10:29→10:39)
[2023-06-11] MEDS: LevoFLOXacin 500 mg/D5W 500 MG in Premix 1 BAG IVPB SCH (10:56)
[2023-06-11] MEDS: Scopolamine 1 mg/72 hour Patch TD SCH (11:49)
[2023-06-11] MEDS: traMADol HCl 50 MG TAB PO PRN (13:33)
[2023-06-11] MEDS: Ketorolac Tromethamine 30 MG (1 mL) VIAL IVP PRN (16:16)
[2023-06-12] MEDS: LevoFLOXacin 500 mg/D5W 500 MG in Premix 1 BAG IVPB SCH (05:44)
[2023-06-12 08:32] VITALS: BP 157/79; TEMP 97.6
== END 2023-06-12 13:00 | disposition home or self-care (01) ==
LOC: ERS 02:41 → SURG A 04:26 → UNDOADMIN 04:26 → UNDODISIN 06-12 13:00
PROVIDERS: ADMIT Surgery; ATTEND Surgery
PROC: 0FT44ZZ Resection of Gallbladder, Percutaneous Endoscopic Approach (ICD-10-PCS; principal; 2023-06-11)
DX: K80.12 Calculus of gallbladder with acute and chronic cholecystitis without obstruction (principal); K82.8 Other specified diseases of gallbladder; Z88.0 Allergy status to penicillin
CPT/HCPCS: 76705; 80053; 81001; 83690; 85025; 88304; 93005; 96361; 96374; 96375; C1713; J0171; J0665; J1100; J1170; J1885; J1956; J2001; J2250; J2270; J2272; J2371; J2405; J2704; J3010